=== PATIENT | female | born 1965 | race Caucasian/White ===

== ENCOUNTER 2023-02-05 23:48 | Emergency (ER) | payer SELFPAY ==
[~2023-02-05] VITALS: Ht 167.6 cm; Wt 82.0 kg
[2023-02-06 00:06] VITALS: O2SAT 96
[2023-02-06 00:10] VITALS: BP 136/78; PULSE 98; RESP 20; TEMP 97.9
== END 2023-02-06 00:31 | disposition home or self-care (01) ==
LOC: ER 23:48
DX: T51.0X1A Toxic effect of ethanol, accidental (unintentional), initial encounter (principal); R42 Dizziness and giddiness; Y92.89 Other specified places as the place of occurrence of the external cause
CPT/HCPCS: 99283